=== PATIENT | male | born 1945 | race Caucasian/White ===

== ENCOUNTER 2021-07-06 15:30 | Outpatient (CLI) | payer MEDICARE, OTHER, SELFPAY ==
[2021-07-06 16:06] VITALS: BP 106/54; PULSE 84; RESP 16; TEMP 37.6; O2SAT 100; BMI 25.0
[2021-07-06] MEDS: 0.9% Saline Lock 10 ML Syringe IV (16:19)
[2021-07-06 16:57] VITALS: BP 123/64; PULSE 80; RESP 16; TEMP 37.6; O2SAT 100
[2021-07-06 17:57] VITALS: BP 123/66; PULSE 80; RESP 16; TEMP 37.9; O2SAT 97
== END 2021-07-06 18:00 | disposition home or self-care (01) ==
LOC: MS3OUT 15:30 → MS3 15:31
PROVIDERS: Referring Provider Nurse Practitioner Adult Health; Visit Provider Nurse Practitioner Adult Health
DX: Z23 Encounter for immunization (principal); U07.1 COVID-19
CPT/HCPCS: J7050; M0245; Q0245; A4216